=== PATIENT | female | born 1950 | race Caucasian/White ===

== ENCOUNTER 2024-12-21 15:11 | Emergency (ER) | payer MEDICARE ==
[~2024-12-21] VITALS: Ht 157.5 cm; Wt 36.4 kg
[~2024-12-21 15:11] MED LIST: ASCO1CAP5 PO; ASPI-611 PO; BETA1TAB18 PO; CALC-951 PO; CHOL2000 PO; GABA-530 PO; HYDR-3972 PO; KRIL1CAP12 PO; LACT1CAP65 PO; LUTE40CA PO; METO-539 PO; MORP30CA16 PO; MULT-1085 PO; OMEG1CAP21 PO; OMEP20CA15 PO; RED600TA PO; UBID100C16 PO; XAL0.005OS OP
[2024-12-21 15:24] VITALS: BP 175/64; PULSE 61; RESP 18; TEMP 97.3; O2SAT 98
[2024-12-23] MEDS ORDERED: ATOR20TA66 PO (20:21)
[2024-12-23] MEDS ORDERED: LISI20TA28 PO (20:21)
[2024-12-23] MEDS ORDERED: DULO30CA52 PO (20:22)
[2024-12-23] MEDS ORDERED: MAGN500C4 PO (20:25)
== END 2024-12-21 19:10 | disposition left against medical advice (07) ==
LOC: ER 15:12
DX: M79.605 Pain in left leg (principal); M79.604 Pain in right leg; Z53.21 Procedure and treatment not carried out due to patient leaving prior to being seen by health care provider